=== PATIENT | female | born 1995 | race Caucasian/White ===

== ENCOUNTER 2017-11-13 17:42 | Emergency (ER) | payer MEDICAID | END 2017-11-13 20:17 | disposition home or self-care (01) | LOC: E/R 20:17 → FTE 17:42 | DX: J20.9 Acute bronchitis, unspecified (principal) | CPT/HCPCS: 99284; Z7502 ==

== ENCOUNTER 2018-09-11 21:21 | Emergency (ER) | payer SELFPAY, MEDICAID ==
[2018-09-11 23:39] LABS: URINE PH (Dip) POC 6.5 (5.0-8.5)
[2018-09-11 23:39] LABS: URINE BLOOD (Dip) POC Negative (NEGATIVE); URINE GLUCOSE (Dip) POC Negative (NEGATIVE); URINE KETONES (Dip) POC Trace (NEGATIVE); URINE LEUKOCYTE EST (Dip) POC Negative (NEGATIVE); URINE NITRITE (Dip) POC Negative (NEGATIVE); URINE TOTAL PROTEIN POC 1+ (NEGATIVE)
== END 2018-09-12 00:09 | disposition home or self-care (01) ==
LOC: FTE 09-12 00:09
DX: H92.01 Otalgia, right ear (principal); R42 Dizziness and giddiness
CPT/HCPCS: 81003; 81025; 82962; 99283